=== PATIENT | female | born 1950 | race Caucasian/White ===

== ENCOUNTER → 2024-06-18 | Outpatient (REF) | payer OTHER, MEDICAID | LOC: M LAB REF 15:14 | PROVIDERS: ATTEND Internal Medicine Endocrinology, Diabetes & Metabolism | DX: E04.2 Nontoxic multinodular goiter (principal) ==

== ENCOUNTER → 2025-06-12 | Outpatient (CLI) | payer MEDICARE, MEDICAID ==
[2025-06-19 19:02] LABS: ALPHA 2-MACROGLOBULINS,QN 268 mg/dL (106-279); ALT (SGPT) P5P 31 U/L (6-29); APOLIPOPROTEIN A-1 146 mg/dL (101-198); FIBROSIS SCORE 0.49; FIBROSIS STAGE MODERATE FIBROSIS (F0); GGT 28 U/L (3-65); HAPTOGLOBIN 179 mg/dL (43-212); NECROINFLAM ACT GRADE NO ACTIVITY (A0); NECROINFLAM ACT SCORE 0.20
== END ==
LOC: M LAB 10:17
PROVIDERS: ATTEND Internal Medicine Gastroenterology
DX: K70.0 Alcoholic fatty liver (principal)